=== PATIENT | female | born 1980 | race Caucasian/White ===

== ENCOUNTER 2018-10-13 11:37 | Observation (INO) ==
[2018-10-13] MEDS ORDERED: MORPHINE 4 MG/1 ML VIAL IV PRN (13:27)
[2018-10-13 14:15] LABS: Basophils % 0.2 % (0.0-0.8); Eosinophils # 0.3 10*3/uL (0.0-0.87); Eosinophils % 2.4 % (0.00-10.9); Hematocrit 40.1 VOL% (35.7-47.0); Immature Granulocytes % 0.4 %; Immature Granulocytes Absolute 0.05 #; Lymphocytes # 3.1 10*3/uL (1.4-4.0); Mean Corpuscular HGB Conc 32.4 GM/DL (32-36); Mean Corpuscular Hemoglobin 28 PG (27-34); Mean Corpuscular Volume 85.7 FL (87-102); Mean Platelet Volume 8.7 FL (9.6-12.0); Monocytes # 0.5 10*3/uL (0.11-0.8); Monocytes % 4.2 % (1.7-12.7); Neutrophils # 8.3 10*3/uL (1.4-7.4); Neutrophils % 67.8 % (38.7-73.9); Platelet Count 371 T/CUMM (130-400); Red Blood Count 4.68 MC/CUMM (3.8-5.5); Red Cell Distribution Width 14.7 % (9.3-17.3); White Blood Count 12.3 T/CUMM (4-12)
[2018-10-13 14:39] LABS: Alanine Aminotransferase 87 U/L (13-56); Albumin 3.3 G/DL (3.4-5.0); Alkaline Phosphatase 148 U/L (45-117); Aspartate Amino Transferase 41 U/L (0-37); Bilirubin,Total < 0.39 MG/DL (0.2-1.0); Blood Urea Nitrogen 8 MG/DL (7-18); Calcium 7.8 MG/DL (8.5-10.1); Glucose 90 MG/DL (74-106); Osmolality,Calculated 274.5 MOS/KG (273-304); Potassium 3.2 MMOL/L (3.5-5.1); Sodium 139 MMOL/L (136-145); Total Protein 7.7 G/DL (6.4-8.3)
[2018-10-13 14:46] LABS: Free T4 (Free Thyroxine) 1.04 NG/DL (0.76-1.46); Thyroid Stimulating Hormone 0.691 uIU/ml (0.358-3.74)
[2018-10-13] MEDS: SODIUM CHLORIDE 0.9% 1,000 ML IV SCH ×2 (15:34→22:31)
[2018-10-13] MEDS: PANTOPRAZOLE 40 MG VIAL IV SCH (16:14)
[2018-10-13] MEDS: POTASSIUM CHLORIDE 20 MEQ TABLET PO PRN (16:14)
[2018-10-13] MEDS: ACETAMINOPHEN 325 MG TABLET PO PRN ×2 (16:17→22:35)
[2018-10-13 16:45] LABS: Apearance,Urine CLEAR (Clear); Bilirubin,Urine Negative (Negative); Blood, Urine Negative (Negative); Glucose,Urine (UA) Negative (Negative); Ketones,Urine 5 mg/dL (Negative); Nitrite,Urine Negative (Negative); Protein,Urine Negative; RBC,Urine 2 /HPF (0-4); Squamous Epithelial Cell,Urine Occasional /HPF (0-10); Urine Color Yellow (Yellow); Urine Specific Gravity 1.006 (1.001-1.035); Urine Urobilinogen < 2.0 EU/DL (0.2-1.0); WBC,Urine 2 /HPF (0-6)
[2018-10-14 06:04] LABS: Calcium 7.4 MG/DL (8.5-10.1); Osmolality,Calculated 276.3 MOS/KG (273-304); Potassium 2.9 MMOL/L (3.5-5.1)
[2018-10-14] MEDS: SODIUM CHLORIDE 0.9% 1,000 ML IV SCH ×2 (06:17→20:49)
[2018-10-14] MEDS: ACETAMINOPHEN 325 MG TABLET PO PRN ×2 (07:48→14:26)
[2018-10-14] MEDS: POTASSIUM CHLORIDE 20 MEQ TABLET PO PRN (07:49)
[2018-10-14] MEDS: PANTOPRAZOLE 40 MG VIAL IV SCH (09:16)
[2018-10-14] MEDS: ONDANSETRON 4 MG/2 ML VIAL IV PRN ×2 (10:26→18:32)
[2018-10-14] MEDS: POTASSIUM CHLORIDE RIDER 10 MEQ in PREMIX 1 EACH IV PRN ×3 (10:27→18:41)
[2018-10-14] MEDS ORDERED: CIPROFLOXACIN INJ 400 MG in PREMIX 1 EACH IV SCH (18:30)
[2018-10-14] MEDS ORDERED: diphenhydrAMINE CAP 25 MG CAPSULE PO ONE (21:29)
[2018-10-15] MEDS: POTASSIUM CHLORIDE RIDER 10 MEQ in PREMIX 1 EACH IV PRN ×2 (04:47→07:00)
[2018-10-15] MEDS: SODIUM CHLORIDE 0.9% 1,000 ML IV SCH (06:34)
[2018-10-15] MEDS: ACETAMINOPHEN 325 MG TABLET PO PRN (06:35)
[2018-10-15 06:59] LABS: Calcium 7.5 MG/DL (8.5-10.1); Osmolality,Calculated 278.1 MOS/KG (273-304); Potassium 3.3 MMOL/L (3.5-5.1)
[2018-10-15] MEDS ORDERED: diphenhydrAMINE CAP 25 MG CAPSULE PO SCH (08:30)
[2018-10-15] MEDS: PANTOPRAZOLE 40 MG VIAL IV SCH (08:45)
[2018-10-15] MEDS ORDERED: LEVOFLOXACIN 500 MG TABLET PO SCH (09:00)
[2018-10-15 15:31] VITALS: BP 97/59
== END 2018-10-15 14:30 | disposition home or self-care (01) ==
LOC: N.5E
PROVIDERS: ADMIT Family Medicine; ATTEND Family Medicine